=== PATIENT | male | born 1985 | race Caucasian/White ===

== ENCOUNTER 2017-02-20 15:05 | Outpatient (CLI) | payer BC | END 2017-02-20 15:06 | disposition home or self-care (01) | DX: R10.84 Generalized abdominal pain (principal) ==

== ENCOUNTER 2017-03-07 20:42 | Outpatient (CLI) | payer BC | END 2017-03-07 20:43 | disposition home or self-care (01) | DX: K76.0 Fatty (change of) liver, not elsewhere classified (principal); R16.1 Splenomegaly, not elsewhere classified ==

== ENCOUNTER 2017-03-09 16:12 | Outpatient (CLI) | payer BC | END 2017-03-09 16:13 | disposition home or self-care (01) | DX: R10.84 Generalized abdominal pain (principal); R14.0 Abdominal distension (gaseous) ==